=== PATIENT | male | born 1980 ===

== ENCOUNTER 2018-11-14 19:58 | Emergency (ER) | payer OTHER ==
[2018-11-14 20:41] VITALS: RESP 16; O2SAT 98
[2018-11-14] MEDS ORDERED: Lidocaine 1% Inj (20ml) ONE (23:22)
[2018-11-15] MEDS ORDERED: Tdap Vaccine 0.5 ml Vial (10-64 yrs) IM ONE ×2 (00:06→00:13)
[2018-11-15] MEDS ORDERED: Lidocaine 1% Inj (20ml) IJ ONE (00:06)
--- NOTE | 2018-11-15 00:06 | ED PDOC ---
Upper Extremity Pain/Injury Time Seen by Provider: 11/14/18 22:48 Chief Complaint (Nursing): Abnormal Skin Integrity Chief Complaint (Provider): finger laceration History Per: Patient Additional Complaint(s): 38 y/o M with no PMH who presents with finger laceration that occurred while cutting raw hamburger meat at work this evening. He states that he came because it wouldn't stop bleeding. Denies numbness or tingling in hand. He does not reca ll the last time he had a tetanus vaccine. Past Medical History Reviewed: Historical Data, Nursing Documentation, Vital Signs Vital Signs: Last Vital Signs Temp 98.2 F 11/14/18 20:39 Pulse 69 11/14/18 20:39 Resp 16 11/14/18 20:39 BP 143/83 11/14/18 20:39 Pulse Ox 98 11/14/18 20:39 - Medical History PMH: No Chronic Diseases - Family History Family History: States: Unknown Family Hx - Home Medications Home Medications: Ambulatory Orders Medication Instructions Recorded Cephalexin [Keflex] 500 mg PO TID 5 Days capsule 11/15/18 - Allergies Allergies/Adverse Reactions: Allergies Allergy/AdvReac Type Severity Reaction Status Date / Time No Known Allergies Allergy Verified 11/14/18 20:39 Physical Exam - Reviewed Nursing Documentation Reviewed: Yes Vital Signs Reviewed: Yes - Physical Exam Appears: Positive for: Well Pulses-Radial (L): 2+ Extremity: Positive for: Normal ROM (with flexion and extension at DIP and PIP), Capillary Refill (< 2sec), Other (4th left digit with approximately 3cm oblique laceration distal to MCP. ) Neurologic/Psych: Positive for: Alert, Oriented, Motor/Sensory Deficits (sensation to light touch intact) - ECG O2 Sat by Pulse Oximetry: 98 Procedures - Laceration/Wound Repair Left Finger Wound Length (cm): 3 Wound's Depth, Shape: superficial Wound Explored: no foreign body removed Irrigated w/ Saline (ccs): 300 Betadine Prep?: Yes Anesthesia: 1% Lidocaine Volume Anesthetic (ccs): 3 Wound Repaired With: Sutures Suture Size/Type: 5:0 Number of Sutures: 4 Layer Closure?: No Wound Complexity: Simple Disposition - Clinical Impression Clinical Impression: Finger laceration - Patient ED Disposition Is Patient to be Admitted: No Counseled Patient/Family Regarding: Diagnosis, Need For Followup, Rx Given - Disposition Referrals: [facility] [Outside] Disposition: Routine/Home Disposition Time: 00:40 Condition: STABLE Additional Instructions: Return to ER or go to your primary care doctor for suture removal in 7 - 10 days. Keep area covered for the next 24hrs and then remove dressing and wash gently with soap and water. Leave open to the air thereafter, however if your hands will get soiled, keep area covered. Do not move finger too much for the next couple of days as you may re-open the wound. Return to ER if there are any signs of infection (redness, pus drainage). Use Tylenol or Ibuprofen for pain. Prescriptions: Cephalexin [Keflex] 500 mg PO TID 5 Days capsule Instructions: Laceration Repair With Stitches (DC) Forms: [id number] (Wolof) Print Language: [id number]
[2018-11-15 04:28] VITALS: BP 128/78; PULSE 72; TEMP 98
== END 2018-11-15 00:51 | disposition home or self-care (01) ==
LOC: H.ER 19:58
DX: S61.212A Laceration without foreign body of right middle finger without damage to nail, initial encounter (principal); W26.0XXA Contact with knife, initial encounter; Y92.89 Other specified places as the place of occurrence of the external cause